=== PATIENT | female | born 1995 | race African-American/Black ===

== ENCOUNTER 2023-12-10 11:55 | Day surgery (SDC) | payer OTHER, SELFPAY ==
--- NOTE | 2023-12-10 | PATH_ITS ---
[facility] Accession Number: [id number] No. of containers..02 Tissue . 01 Material submitted: . PART A: gastrointestinal site - JEJUNUM BX AND GASTRIC POUCH PART B: gastrointestinal site - GASTRIC POUCH BX . 01 Clinical history: . 4 PIECES JEJUNUM 1 PIECE GASTRIC POUCH (A) . 01 Diagnosis: Part A: JEJUNUM BX AND GASTRIC POUCH: 1. Small bowel mucosa with no diagnostic alterations. No active inflammation and no evidence of celiac disease. 2. One fragment of gastric mucosa with focal mild chronic inflammation. No Helicobacter organisms identified on H/E stain. No intestinal metaplasia, dysplasia, or malignancy identified. . Part B: GASTRIC POUCH BX: Gastric oxyntic mucosa with no diagnostic alterations. No Helicobacter organisms identified on H/E stain. No intestinal metaplasia, dysplasia, or malignancy identified. [facility] 12/14/2023 1134 Local . 01 Electronically signed: . Joe Orlando MD, Pathologist NPI- [id number] . 01 Gross description: . Part A: JEJUNUM BX AND GASTRIC POUCH: Received in formalin are multiple fragment(s) of carranza, soft tissue measuring 0.1 x 0.1 x 0.1 cm to 0.3 x 0.3 x 0.3 cm submitted entirely in 1 cassette(s) . Part B: GASTRIC POUCH BX: Received in formalin is 1 fragment(s) of carranza, soft tissue measuring 0.3 x 0.3 x 0.3 cm submitted entirely in 1 cassette(s) /ANGEL 12/14/2023 1134 Local . 01 Pathologist provided ICD-10: D50.0 . 01 CPT . 446325, [id number] Specimen Comment: A courtesy copy of this report has been sent to [phone] Performed at: [address] [facility], [place], [place] [id number] MD Joe Orlando MD Phone: [phone]
[2023-12-10 12:31] VITALS: BP 123/82; PULSE 58; RESP 16; TEMP 36.2; O2SAT 98; BMI 31.2
--- NOTE | 2023-12-10 13:51 | PM.HP.1 ---
History of Present Illness History of Present Illness Date Patient Seen: 12/10/23 Time Patient Seen: 13:52 Chief complaint: [facility] Narrative: 28-year-old female with 3-4 years of constipation that seems to be problematic since her last . She had a gastric bypass in 2021 and subsequently lost approximately 100 lb. I reviewed her recent office note. No significant changes. She downplayed the melena describing it as dark brown stool once or twice. She has had some epigastric discomfort over the last couple of weeks. She takes ibuprofen about once per week for headaches. EGD and colonoscopy have been requested. She is struggled with a bowel prep and received a Fleet's enema this afternoon. She has been fatigued on and off for the last year or so. She recently found out that she had a fairly severe iron-deficiency anemia. [facility] Social History household members: spouse Smoking Status: Never smoker Meds Home Medications and Allergies Home Medications Medication Instructions Recorded Confirmed Type docusate sodium 100 mg capsule 100 mg PO DAILY 12/10/23 12/10/23 History ferrous sulfate 325 mg (65 mg 325 mg PO DAILY 12/10/23 12/10/23 History iron) tablet (FeroSul) ondansetron 4 mg disintegrating 4 PO PRN PRN Nausea 12/10/23 History tablet pantoprazole 40 mg tablet,delayed 40 mg PO DAILY 12/10/23 12/10/23 History release Allergies Allergy/AdvReac Type Severity Reaction Status Date / Time No Known Drug Allergies Allergy Verified 12/10/23 12:28 Review of Systems Review of Systems ROS: Yes All systems reviewed with the patient and are negative except as otherwise documented Exam Vital Signs (past 8 hours): - 12/10/23 12:31 Temperature 97.2 F L Pulse Rate 58 L Respiratory Rate 16 Blood Pressure 123/82 Pulse Oximetry 98 Oxygen Delivery Method Room Air Oxygen Delivery Method Room Air Const General: cooperative HENMT Head: normal to inspection Eyes General: appearance normal, both eyes and all related structures Neck Neck: normal visual inspection Chest Chest: normal inspection of the chest Resp Effort & Inspection: normal respiratory effort Cardio Rate: regular rate GI Inspection: normal to inspection Skin General: no rashes or lesions noted Neuro General: patient alert and patient awake Extrem General: normal to inspection and no pedal edema Psych Appearance: grossly normal Assessment & Plan Assessment & Plan narrative: 28-year-old female with iron-deficiency anemia, possible melena, epigastric pain, constipation. EGD and colonoscopy are pursued today.
--- NOTE | 2023-12-10 13:54 | PM.PREOP ---
Pre-operative Note Interval Note History & Physical reviewed/Exam performed by Physician: Yes Changes to H&P: No ASA Class (for procedural sedation): II
--- NOTE | 2023-12-10 14:29 | SUR.OPER ---
POOR COLON PREP
[2023-12-10 14:30] VITALS: BP 126/85; PULSE 61; RESP 14; TEMP 36.1; O2SAT 99
--- NOTE | 2023-12-10 14:31 | P.OP.EGD&C_ITS ---
Operative Date/Time/Diagnoses Date of procedure: 12/10/23 Time of procedure: 14:31 Pre-op diagnosis: Iron-deficiency anemia, possible melena, constipation, abdominal pain Post-op diagnosis: same Procedure & Clinicians Study performed: EGD with biopsies and a colonoscopy Same procedure as scheduled: Yes Indications: Iron-deficiency anemia, possible melena, constipation, abdominal pain Surgeon: Praful Peraza Procedure Notes SCOAP/Timeout: Done Procedure in detail: After the risks and benefits were explained, written and verbal informed consent was obtained. The patient was brought into the procedure room and placed into the left lateral decubitus position. Please see anesthesia note for sedation details. The scope was introduced into the mouth through the bite block and advanced under direct visualization to the afferent and efferent limbs of the jejunum The scope was slowly withdrawn carefully examining the mucosa for any defects or lesions. Retroflexed views were accomplished in the stomach. The stomach was decompressed, the scope was then removed from the patient who tolerated the procedure well. The patient was then turned around. A digital rectal examination was accomplished. The scope was introduced into the rectum and advanced to the cecum as identified by the appendiceal orifice and ileocecal valve. The terminal ileum was interrogated. The scope was then slowly withdrawn to careful ly examine the mucosa for any defects or lesions. Multiple direct views were made through the dentate line for exclusion of pathology. The colon was decompressed. The scope was removed from the patient who tolerated the procedure well. Pediatric colonoscope Bowel prep poor Scope withdrawal time: 6 minutes Sedation minutes: 17 Complications: none Impression: 1. Afferent limb colon this was short but normal in appearance. 2. Efferent limb: No significant mucosal pathology was appreciated. Random biopsies were taken for exclusion of sprue. (Inadvertently 1 gastric pouch biopsy ended up in this jar). 3. Gastric pouch: This had an uninterrupted staple line. The GJ anastomosis was widely patent and normal in appearance. I did not appreciate any evidence of marginal ulceration on either side of the GJ anastomosis. A biopsy was taken from the gastric pouch for exclusion of H pylori. 4. Esophagus: The squamocolumnar junction correlated with the top of the gastric folds. GEJ was at 38 cm from the incisors. No evidence of any esophagitis. No evidence of any significant mucosal pathology throughout the entire esophagus. 5. Colon: The patient had an exceedingly poor bowel prep. There was copious amounts of brown liquid and solid debris. Much of the liquid could be aspirated with the endoscope using copious irrigation fluid. That said, there were many areas were small and even medium pathology could have been overlooked. I did not see any sign of colitis throughout. There was no sign of any obvious mass lesion. The terminal ileum was interrogated and appeared visually normal. Endoscopic diagnosis 1. Normal-appearing gastric bypass anatomy 2. Poor bowel prep 3. Otherwise visually unremarkable colonoscopy Post-procedure Plan for aftercare: 1. Await histology. 2. Minimize/avoid NSAIDs. Consider an [id number] course of omeprazole to treat the possibility of NSAID induced peptic ulcer disease in the excluded stomach. 3. Consider repeat colonoscopy with extended bowel prep. 4. Consider small bowel capsule endoscopy. Disposition: PACU
[2023-12-10 14:35] VITALS: BP 125/87; PULSE 60; RESP 16; O2SAT 100
[2023-12-10 14:40] VITALS: BP 128/78; PULSE 82; RESP 14; O2SAT 98
[2023-12-10] MEDS: LACTATED RINGERS 1,000 ML 42 ML IV (14:46)
--- NOTE | 2023-12-11 17:04 | SUR.OPER ---
per noted times in chart. EGD started at [id number]. Colonoscopy started at 1412.
== END 2023-12-10 14:57 | disposition home or self-care (01) ==
PROVIDERS: Referring Provider Internal Medicine Gastroenterology; Visit Provider Internal Medicine Gastroenterology
PROC: 0DJ08ZZ Inspection of Upper Intestinal Tract, Via Natural or Artificial Opening Endoscopic (ICD-10-PCS; CPT 43235; principal; 2023-12-10 13:00)
PROC: 0DJD8ZZ Inspection of Lower Intestinal Tract, Via Natural or Artificial Opening Endoscopic (ICD-10-PCS; CPT 45378; 2023-12-10 13:00)
DX: D50.9 Iron deficiency anemia, unspecified (principal); K59.00 Constipation, unspecified; K29.50 Unspecified chronic gastritis without bleeding
CPT/HCPCS: 45378; 43239; J2704